=== PATIENT | male | born 1945 | race Caucasian/White ===

== ENCOUNTER 2022-04-07 15:19 | Outpatient (CLI) | payer MEDICARE, SELFPAY ==
--- NOTE | 2022-04-07 | MR_ITS ---
WS: [id number] MRI RIGHT SHOULDER HISTORY: rt SHOULDER PAIN COMPARISON: None available. TECHNIQUE: Multiplanar sequences of the shoulder joint are submitted. Moderate AC joint hypertrophy. Osteoarthritic changes with narrowing of the joint spaces. Hypertrophi c bone formation with osteophytes. Small amount of fluid along the AC ligament. 6 mm osteophyte with moderate subacromial impingement. No os acromion. Small caliber biceps tendon. There is increased flu id within the biceps tendon sheath. Moderate subacromial and subdeltoid bursal fluid. Moderate cortical irregularity and loss of cartilage involving the humeral head and glenoid. Mild sup raspinatus muscle atrophy. Distal supraspinatus tendinopathy. There is a partial tear along the artic ular surface of the supraspinatus tendon directly superior to the humeral head. Tendinopathy subscapu nicole tendon with a focal split tear in the distal tendon. No full-thickness tear. Small amount of fl uid in the subscapularis recess. There is a small loose body within the fluid. Infraspinatus tendon i s intact. Degenerative changes within the labrum. Suspicious for tear involving the superior labrum. Subchondral cystic changes in the coracoid process. MR/MR shoulder RT wo con* [id number] IMPRESSION: 1. Moderate AC joint arthritis. 2. Moderate subacromial impingement by an osteophyte from the distal undersurf megan of the acromion. 3. Tendinopathy distal supraspinatus tendon with a partial articular surface t ear. 4. Marked tendinopathy subscapularis tendon with a focal distal intrasubstance tear. 5. Loose body in the subscapularis recess fluid. 6. Advanced degenerative changes in the labrum and suspicious for superior lab ral tear. 7. Loss of cartilage over the humeral head and glenoid with subchondral cystic changes in the coracoid process.
== END 2022-04-07 15:20 | disposition home or self-care (01) ==
PROVIDERS: PCP Family Medicine; Visit Provider Family Medicine
DX: M19.011 Primary osteoarthritis, right shoulder
CPT/HCPCS: 73221

== ENCOUNTER → 2022-06-17 12:56 | Outpatient (BNVA) | payer MEDICARE, SELFPAY | PROVIDERS: PCP Family Medicine; Visit Provider Specialist | DX: M19.011 Primary osteoarthritis, right shoulder (principal) | CPT/HCPCS: 20610; 73030; 99204; J1100; J2795; J3301 ==

== ENCOUNTER 2022-06-22 06:00 | Outpatient (RCR) | payer MEDICARE, SELFPAY | END 2022-06-26 23:59 | disposition home or self-care (01) | LOC: SPT 06:00 | PROVIDERS: Visit Provider Specialist | DX: M25.511 Pain in right shoulder (principal) | CPT/HCPCS: 97110; 97161 ==

== ENCOUNTER 2022-07-27 06:00 | Outpatient (RCR) | payer MEDICARE, SELFPAY | END 2022-07-30 23:59 | disposition home or self-care (01) | LOC: SPT 06:00 | PROVIDERS: Visit Provider Specialist | DX: M25.511 Pain in right shoulder (principal) | CPT/HCPCS: 97110 ==

== ENCOUNTER → 2022-11-19 09:12 | Outpatient (BNVA) | payer MEDICARE, SELFPAY | PROVIDERS: Visit Provider Specialist | DX: M19.011 Primary osteoarthritis, right shoulder | CPT/HCPCS: 20610; J1100; J2795; J3301 ==